=== PATIENT | male | born 1955 | race Caucasian/White ===

== ENCOUNTER → 2018-01-23 | Outpatient (CLI) | payer OTHER ==
[~2018-01-23] MED LIST: ASPIRIN 81M81 MG/TA2 PO; HYGROTON 2525 MG/TAB PO; KLOR-CON 1010 MEQ PO; NORCO 325 MG-7.1 TAB PO
== END ==
LOC: COL.CARD 06:31
DX: I10 Essential (primary) hypertension (principal); E78.5 Hyperlipidemia, unspecified

== ENCOUNTER 2019-05-02 20:03 | Emergency (ER) | payer OTHER ==
[~2019-05-02] VITALS: Ht 177.8 cm; Wt 100.0 kg
[2019-05-02 20:39] VITALS: TEMP 98.4
[2019-05-03 00:49] VITALS: PULSE 66
== END 2019-05-03 00:57 | disposition home or self-care (01) ==
LOC: COL.ER 20:03
DX: S61.412A Laceration without foreign body of left hand, initial encounter (principal); Z23 Encounter for immunization; Z79.82 Long term (current) use of aspirin